=== PATIENT | female | born 1980 | race Caucasian/White ===

== ENCOUNTER 2017-06-20 13:39 | Emergency (ER) | payer BC ==
[~2017-06-20] VITALS: Ht 177.8 cm; Wt 71.8 kg
[~2017-06-20 13:39] MED LIST: NORCO 5/3251 TABLET PO
[2017-06-20 13:49] VITALS: BP 118/68
[2017-06-20 14:10] LABS: HEMATOCRIT 40.9 % (36.0-46.0); HEMOGLOBIN 14.1 G/DL (11.9-15.5); MCH 30.9 PG (29.0-34.0); MCHC 34.5 G/DL (30.0-36.0); MCV 89.7 FL (83-99); RBC DIS.WIDTH-CV 12.7 % (11.8-14.6); RBC DIS.WIDTH-SD 41.5 % (39-53); RED BLOOD COUNT 4.56 M/uL (3.80-5.20); WHITE BLOOD COUNT 7.6 K/uL (4.1-10.2)
[2017-06-20 14:14] LABS: ALBUMIN 4.6 g/dL (3.2-4.8); CHLORIDE 104 mEq/L (99-109); POTASSIUM 4.9 mEq/L (3.7-5.4); SODIUM 138 mEq/L (136-147)
[2017-06-20 14:16] LABS: GLUCOSE 93 mg/dL (70-99); TOTAL PROTEIN 7.8 g/dL (6.4-8.3)
[2017-06-20 14:18] LABS: TOTAL BILIRUBIN 0.5 mg/dL (0.0-1.0)
[2017-06-20 14:20] LABS: ALKALINE PHOSPHATASE 64 IU/L (3-129); CREATININE 0.8 mg/dL (0.6-1.3); GFR ESTIMATE (CALCULATED) > 59 mL/min/
[2017-06-20 14:21] LABS: UREA NITROGEN (BUN) 9 mg/dL (9-23)
[2017-06-20 14:22] LABS: AST (GOT) 12 IU/L (2-34)
[2017-06-20 14:23] LABS: ALT (GPT) 15 IU/L (3-49)
[2017-06-20 14:30] LABS: QUANTITATIVE HCG < 4.0 MIU/ML
[2017-06-20 14:55] LABS: PLAT.SUFFICIENCY ADEQUATE; PLATELET COUNT 234 K/uL (156-360)
== END 2017-06-20 18:06 | disposition left against medical advice (07) ==
LOC: EME 13:39
DX: G43.909 Migraine, unspecified, not intractable, without status migrainosus (principal); Z53.21 Procedure and treatment not carried out due to patient leaving prior to being seen by health care provider
CPT/HCPCS: 80053; 84702; 85027